=== PATIENT | male | born 1990 | race Caucasian/White ===

== ENCOUNTER 2024-10-04 09:14 | Outpatient (OUT) | payer BC, SELFPAY ==
--- OUTSIDE RECORDS SUMMARY | 2024-10-04 09:22 | XMS_ITS | Clinical Summary ---
Author Organization [facility] Address [address] [place] [address] Care Team Providers Care Load Test Mechanic Name Role Phone Hudson Kruse MD Primary Care Provider [phone] Allergies Active Allergy Reactions Criticality Noted Date Comments Montelukast 12/06/2022 Other Reaction(s): Unknown Medications atorvastatin (Lipitor) 20 MG tablet Take 20 mg by mouth in the morning. Active Ibuprofen (Advil Migraine) capsule every 8 (eight) hours. Active lisinopril-hydr oCHLOROthiazide 10-12.5 MG tablet Take 1 tablet by mouth in the morning. 11/10/2022 Active oxyCODONE-aceta minophen (Percocet) 5-325 MG tablet TAKE 2 TABLETS BY MOUTH EVERY 6 HOURS NEEDED FOR PAIN FOR 7 DAYS 01/01/2023 Active Resolved Problems Problem Noted Date Diagnosed Date Resolved Date Abrasion of finger 12/08/2022 3 Bronchitis 12/08/2022 12/08/2022 Elevated BP without diagnosis of hypertension 12/09/19 23 12/08/2022 HLD (hyperlipidemia) 12/08/2022 023 HTN (hypertension) 12/08/2022 Microscopic hematuria 12/08/20222022 BMI 50.0-59.9, adult 12/08/2022 023 Obesity 12/08/2022 12/08/2022 Snoring 12/08/2022 12/08/2022 Chronic pharyngitis 12/06/2022 12/07/19 Hypertrophy of tonsils with hypertrophy of adenoids 12/06/2022 12/06/2022 Internal derangement of right shoulder 12/06/2022 12/06/2022 Obstructive sleep apnea 12/06/202211/26 Immunizations Immunization Administration Dates Next Due Pfizer Canas Cap SARS-CoV-2 Vaccination 2 Td (adult), 5 Lf tetanus tox oid, preservative free, adsorbed 08/28/2013 Social History Tobacco Use Types Packs/Day Years Used Date Smoking Tobacco: Never Smokeless Tobacco: Never Alcohol Use Standard Drinks/Week Comments Not Currently 0 (1 standard drink = 0.6 oz pur e alcohol) Sex and Gender Information Value Date Recorded Sex Assigned at Not on file Legal Sex Male 8:33 PM EDT Gender Identity Not on file Sexual Orientation Not on file Last Filed Vital Signs Vital Sign Reading Time Taken Comments Blood Pressure 130/88 04/08/2019 12:00 PM EST Pulse - - Temperature - - Respiratory Rate - - Oxygen Saturation - - Inhaled Oxygen Concentration - - Weight 168 kg (370 lb) 01/08/2023 9:15 AM EST Height 182.9 cm (6') 01/08/2023 9:15 AM EST Body Mass Index 50.18 01/08/2023 9:15 AM EST Plan of Treatment Health Maintenance Due Date Last Done Comments Influenza Vaccine (#1) 2024 Insurance Care Teams Load Test Mechanic Relationship Specialty [place] [address] [place] [address] PCP - General Family Medicine 12/08/22
--- OUTSIDE RECORDS SUMMARY | 2024-10-04 09:22 | XMS_ITS | Encounter Summary ---
Author Organization [facility] Address [address] [place] [address] Phone Care Team Providers Care Shuttle Fitting Supervisor Name Role Phone Unavailable Primary Care Provider Unavailabl e Encounter Details Date Type Department Care Team (Late st Contact Info) Description 01/01/2023 Scanned Document [facility] [address] [place] [address] Scanning, Generic Provider Social History Tobacco Use Types Packs/Day Years Used Date Smoking Tobacco: Never Assessed Sex and Gender Information Value Date Recorded Sex Assigned at Not on file Legal Sex Male 9:10 AM EST Gender Identity Not on file Sexual Orientation Not on file documented as of this encounter Plan of Treatment Not on file documented as of this encounter Procedures Procedure Name Priority Date/Time Associated Diagnosis Comments ECHOCARDIOGRAM 01/01/2023 documented in this encounter Results * ECHOCARDIOGRAM (01/01/2023) Narrative 01/01/2023 Ordered by an unspecified provider. us Generic Provider Scanning CV ECHO PROCEDURES Fin al Result documented in this encounter Visit Diagnoses Not on filedocumented in this encounter
--- OUTSIDE RECORDS SUMMARY | 2024-10-04 09:22 | XMS_ITS | Clinical Summary ---
Author Organization [facility] Address [address] [place] [address] Phone Care Team Providers Care Salon Receptionist Name Role Phone Unavailable Primary Care Provider Unavailabl e Social History Tobacco Use Types Packs/Day Years Used Date Smoking Tobacco: Never Assessed Sex and Gender Information Value Date Recorded Sex Assigned at Not on file Legal Sex Male 9:10 AM EST Gender Identity Not on file Sexual Orientation Not on file Plan of Treatment Health Maintenance Due Date Last Done Comments HIV Screening 1988 Lipid Panel 1988 Yearly Adult Physical 1990 MMR Vaccines (1 of 1 - Stand nato series) 1989 Hepatitis C Screening 2006 Hepatitis B Vaccines (1 of 3 - 19+ 3-dose series) 08/23/2007 DTaP/Tdap/Td Vaccines (1 - Tdap) 2010 HPV Vaccines (1 - 3-dose sta ndard series) 08/23/2015 COVID-19 Vaccine (1 - 2023-2 5 season) 2023 Influenza Vaccine (#1) 2024 Zoster Vaccines (1 of 2) 2038 HIB Vaccines Aged Out No longer eligi ble based on patient's age to complete this topic Hepatitis A Vaccines Aged Out No long er eligible based on patient's age to complete this topic IPV Vaccines Aged Out No longer eligi ble based on patient's age to complete this topic Meningococcal Vaccine Aged Out No krsi dave eligible based on patient's age to complete this topic Pneumococcal Vaccine: Pediat rics and At-Risk Adult Patients Aged Out No longer lior gible based on patient's age to complete this topic Rotavirus Vaccines Aged Out No longer eligible based on patient's age to complete this topic Insurance [facility]
--- OUTSIDE RECORDS SUMMARY | 2024-10-04 09:22 | XMS_ITS | Encounter Summary ---
Author Organization [facility] Address [address] [place] [address] Care Team Providers Care Motor Vehicle Representative Name Role Phone Hudson Kruse MD Primary Care Provider [phone] Encounter Details Date Type Department Care Team (Late st Contact Info) Description 12/19/2022 External Result Encounter [facility] External Department Unsolicited Harry De Santiago, DO [address] [place] [address] Social History Tobacco Use Types Packs/Day Years [...] Procedure Name Priority Date/Time Associated Diagnosis Comments ECG 12-LEAD 12/19/2022 2:16 PM EDT documented in this encounter Results * ECG 12 lead (12/19/2022 2:16 PM EDT) 12/19/2022 2:16 PM EDT Sukhdeep [facility] - 01/10/2023 10:28 AM [facility] Main [address] [address] Electrocardiograph Report Signed Patient: Andrez Ware MR#: [id number] 9 : 1990 Acct:[id number] Age/Sex: 32 / M ADM Date: 12/19/22 Loc: PS Room: Type: REG CLI Attending Dr: Harry De Santiago DO Ordering Provider: Harry De Santiago DO Date of Service: 12/19/22 ECG/ECG 12 lead ECG: pst Copies to: Test Reason : Blood Pressure : / mmHG Vent. Rate : 071 BPM Atrial Rate : 071 BPM P-R Int : 178 ms QRS Dur : 100 ms QT Int : 396 ms P-R-T Axes : 011 017 -03 degrees QTc Int : 430 ms Normal sinus rhythm Nonspecific T wave abnormality Inferolateral leads Abnormal ECG No previous ECGs available Confirmed by ANIL BROOKS DO ([id number]) on 12/19/2022 6:48:33 PM Referred By: FOREIGN Electronically Signed By:ANIL BROOKS DO Transcribed By: AKASH Signed By Anil Brooks DO 12/19 1848 Procedure Note Anil Brooks DO - 01/10/2023 [facility] Main [place] [address] [place] [address] Electrocardiograph Report Signed Patient: Andrez Ware JMR#: [id number] 9 : 1990Acct:[id number] Age/Sex: 32 / MADM Date: 12/19/22 Loc: PS Room:Type: [facility] CLI Attending Dr: Harry De Santiago DO Ordering Provider: Harry De Santiago DO Date of Service: 12/19/22 ECG/ECG 12 lead ECG: pst Copies to: Test Reason : Blood Pressure : / mmHG Vent. Rate : 071 BPM Atrial Rate : 071 BPM P-R Int : 178 ms QRS Dur : 100 ms QT Int : 396 ms P-R-T Axes : 011 017 -03 degrees QTc Int : 430 ms Normal sinus rhythm Nonspecific T wave abnormality Inferolateral leads Abnormal ECG No previous ECGs available Confirmed by ANIL BROOKS DO ([id number]) on 12/19/2022 6:48:33 PM Referred By: FOREIGN Electronically Signed By:ANIL HOLT Transcribed By: MUS Signed By Anil Brooks,DO12/19 1848 us Harry De Santiago DO ECG ORDERABLES Final Resul t Performing Organization Address City/State/[facility] Co de Phone Number [facility] [address] [place] [address], documented in this encounter Visit Diagnoses Not on filedocumented in this encounter Care Teams Motor Vehicle Representative Relationship Specialty [place] [address] [place] [address] PCP - General Family Medicine 12/08/22 documented as of this encounter
--- OUTSIDE RECORDS SUMMARY | 2024-10-04 09:22 | XMS_ITS | Encounter Summary ---
Author Organization [facility] Address [address] [place] [address] Care Team Providers Care Head Of English Name Role Phone Hudson Kruse MD Primary Care Provider [phone] Encounter Details Date Type Department Care Team (Late st Contact Info) Description 07/18/2022 Abstract [facility] [address] [facility] [place] [address] Yamini Cisneros MA Social History Tobacco Use Types Packs/Day Years Used Date Smoking Tobacco: Never Assessed Sex and Gender Information Value Date Recorded Sex Assigned at Not on file Legal Sex Male 8:33 PM EDT Gender Identity Not on file Sexual Orientation Not on file documented as of this encounter Plan of Treatment Not on file documented as of this encounter Visit Diagnoses Not on filedocumented in this encounter Care Teams Head Of English Relationship Specialty [place] [address] [place] [address] PCP - General Family Medicine 12/08/22 documented as of this encounter
[2024-10-04 09:46] LABS: Hematocrit 39.2 % (42.0-54.0); Hemoglobin 12.6 g/dL (14.0-18.0); Immature Granulocytes Abs Auto 0.02 10^3/uL (0.00-0.03); Immature Granulocytes Pct Auto 0.3 % (0.0-0.5); Lymphocytes Absolute Auto 1.7 10^3/uL (1.2-3.8); Mean Corpuscular HGB Conc 32.1 g/dL (29.9-35.2); Mean Corpuscular Hemoglobin 27.1 pg (25.9-34.0); Mean Corpuscular Volume 84.3 fL (80.0-94.0); Platelet Count 258 10^3/uL (150-450); Red Blood Count 4.65 10^6/uL (4.70-6.10); White Blood Count 7.5 10^3/uL (4.0-11.0)
[2024-10-04 10:09] LABS: Alanine Aminotransferase 47 U/L (16-63); Albumin Globulin Ratio 0.8; Albumin Level 3.6 g/dL (3.4-5.0); Alkaline Phosphatase 93 U/L (46-116); Anion Gap 8.9; Aspartate Amino Transferase 22 U/L (15-37); Blood Urea Nitrogen 14.0 mg/dL (7.0-18.0); Calcium 9.0 mg/dL (8.5-10.1); Carbon Dioxide 28.4 mmol/L (21.0-32.0); Chloride 103 mmol/L (98-107); Cholesterol 114 mg/dL (<=200); Estimated GFR (African America >60 (>=60 mL/min/1.73m^2); Estimated GFR (Non-African Ame >60 (>=60 mL/min/1.73m^2); Globulin 4.5 g/dL; Glucose 98 mg/dL (74-106); HDL Cholesterol 29 mg/dL (40-60); Potassium 4.3 mmol/L (3.5-5.1); Sodium 136 mmol/L (136-145); Total Protein 8.1 g/dL (6.4-8.2); Triglycerides 90 mg/dL (<=150); VLDL CHOLESTEROL 18.0 mg/dL
== END 2024-10-04 09:15 | disposition home or self-care (01) ==
PROVIDERS: PCP Nurse Practitioner Family; Visit Provider Nurse Practitioner Family
DX: E78.00 Pure hypercholesterolemia, unspecified (principal); I10 Essential (primary) hypertension
CPT/HCPCS: 36415; 80053; 80061; 85025

== ENCOUNTER 2024-10-10 10:20 | Outpatient (OUT) | payer BC, SELFPAY ==
[2024-10-10 12:17] LABS: Iron 35.0 ug/dL (65.0-175.0); Percent Iron Saturation 12.8 %; Total Iron Binding Capacity 273.0 ug/dL (250.0-450.0)
[2024-10-10 12:32] LABS: Ferritin 174.0 ng/mL (26.0-388.0)
[2024-10-11 08:09] LABS: Vitamin B12 582 pg/mL (232-1245)
== END 2024-10-10 10:21 | disposition home or self-care (01) ==
LOC: LAB 10:21
PROVIDERS: PCP Nurse Practitioner Family; Visit Provider Nurse Practitioner Family
DX: D64.9 Anemia, unspecified (principal)
CPT/HCPCS: 36415; 82607; 82728; 83540; 83550